=== PATIENT | female | born 1940 | race Caucasian/White ===

== ENCOUNTER 2019-12-25 14:19 | Emergency (ER) | payer MEDICARE ==
[~2019-12-25] VITALS: Ht 157.5 cm; Wt 85.0 kg
--- NOTE | 2019-12-25 14:38 | NUR ---
PT BIB EMS FOR POSSIBLE NEW ALLERGIC REACTION TO NEW MED OXYBUTIN. STARTED W ITCHY RASH ON GROIN, LIP AND TONGUE SWELLING, WHEEZES, . PT STATES IS HARD TO SWALLOW. PT NOT IN CURRENT RESP DISTRESS. CARDAIC MONITOR IN PLACE. FACILILYT ADMIN 25 MG PO BENEDRYL AND 24 MG PREDNISONE. EMS ADMING 25 MG IV MD AT BEDSIDE.
[2019-12-25] MEDS ORDERED: DEXAMETHASONE 4 MG/ML, 1ML ONE (14:54)
[2019-12-25] MEDS ORDERED: DEXAMETHASONE 4 MG/ML, 1ML IVPush ONE (15:00)
[2019-12-25] MEDS ORDERED: SODIUM CHLORIDE FLUSH 10ML SYR IVF ONE (15:00)
[2019-12-25 15:14] LABS: BASOPHILS % (AUTO) 1 % (0-1); EOSINOPHILS % (AUTO) 1 % (1-7); LYMPHOCYTES % (AUTO) 32 % (22-44); MEAN CORPUSCULAR HEMOGLOBIN 30.5 pg (27.0-34.8); MEAN PLATELET VOLUME 8.4 fL (7.4-10.4); MONOCYTES % (AUTO) 7 % (2-9); NEUTROPHILS % (AUTO) 59 % (42-75); PLATELET COUNT 171 x10^3/uL (130-400); RED BLOOD COUNT 4.31 x10^6/uL (3.82-5.3); RED CELL DISTRIBUTION WIDTH 13.5 % (9.6-15.2)
[2019-12-25 15:22] LABS: MD NO
[2019-12-25 15:27] LABS: ALANINE AMINOTRANSFERASE 752 U/L (12-78); ALBUMIN 3.3 g/dL (3.4-5.0); ANION GAP 5 mmol/L (5-15); CALCIUM 8.8 mg/dL (8.5-10.1); CHLORIDE 104 mmol/L (98-107); CREATININE 1.07 mg/dL (0.55-1.02)
--- NOTE | 2019-12-25 15:30 | NUR ---
PT STATES SHE IS FEELING MUCH BETTER, SWELLING IN LIPS AND MOUTH DECREASED. VSS
[2019-12-25 15:36] LABS: ALKALINE PHOSPHATASE 360 U/L (45-117); BILIRUBIN,TOTAL 0.4 mg/dL (0.2-1.0); TOTAL PROTEIN 6.6 g/dL (6.4-8.2)
[2019-12-25 17:21] VITALS: BP 155/60
--- NOTE | 2019-12-25 17:22 | NUR ---
PT POC TO DC BACK TO [facility]IA [facility].
--- NOTE | 2019-12-25 18:16 | NUR ---
Patient/Caregiver given discharge instructions and they have confirmed that they understand the instructions. Patient ambulatory with steady gait.
--- NOTE | 2019-12-25 18:17 | NUR ---
NEIDA HISTOPATHOLOGIST PT FOR DC
== END 2019-12-25 18:19 | disposition home or self-care (01) ==
LOC: ED 15:26
DX: T78.2XXA Anaphylactic shock, unspecified, initial encounter (principal); R94.5 Abnormal results of liver function studies; R06.02 Shortness of breath; M79.89 Other specified soft tissue disorders; I44.7 Left bundle-branch block, unspecified; Z95.0 Presence of cardiac pacemaker; Z86.73 Personal history of transient ischemic attack (TIA), and cerebral infarction without residual deficits
CPT/HCPCS: 36415; 71045; 80053; 80074; 84145; 85025; 93005; 96374; 99285; J1100